=== PATIENT | female | born 1990 | race Caucasian/White ===

== ENCOUNTER 2022-04-06 16:58 | Emergency (ER) | payer OTHER ==
[~2022-04-06] VITALS: Ht 167.6 cm; Wt 70.0 kg
[2022-04-06 17:09] VITALS: BP 142/84
[2022-04-06] MEDS ORDERED: OLAN5TAB52 PO (17:18)
[2022-04-06] MEDS ORDERED: OLANZapine 5 MG TABLET PO ONE (17:45)
[2022-04-06] MEDS: LORazepam 1 MG TABLET PO ONE ×2 (18:17→18:24)
== END 2022-04-07 02:07 | disposition left against medical advice (07) ==
LOC: EMS 17:00
DX: F20.9 Schizophrenia, unspecified (principal); F32.9 Major depressive disorder, single episode, unspecified; F12.90 Cannabis use, unspecified, uncomplicated
CPT/HCPCS: 99283

== ENCOUNTER 2022-04-17 16:36 | Emergency (ER) | payer OTHER ==
[~2022-04-17] VITALS: Ht 165.1 cm; Wt 65.9 kg
[~2022-04-17 16:36] MED LIST: OLAN5TAB52 PO
[2022-04-17 17:28] VITALS: BP 145/86
[2022-04-20] MEDS ORDERED: FLUO-176 PO (17:55)
== END 2022-04-17 17:40 | disposition left against medical advice (07) ==
LOC: EMS 16:36
DX: N93.9 Abnormal uterine and vaginal bleeding, unspecified (principal); F20.9 Schizophrenia, unspecified; F32.9 Major depressive disorder, single episode, unspecified; F41.9 Anxiety disorder, unspecified; F12.90 Cannabis use, unspecified, uncomplicated
CPT/HCPCS: 99281

== ENCOUNTER 2022-04-17 19:59 | Inpatient (IN) | payer MEDICAID, OTHER ==
[~2022-04-17] VITALS: Ht 165.1 cm; Wt 75.4 kg
[2022-04-17 20:48] LABS: BASOPHILS % (AUTO) 0.4 % (0.0-2.0); EOSINOPHILS % (AUTO) 0.3 % (1.0-6.0); HEMATOCRIT 37.1 % (36-46); HEMOGLOBIN 11.8 g/dL (12.0-16.0); LYMPHOCYTES # (AUTO) 2.3 K/uL (1.0-4.8); LYMPHOCYTES % (AUTO) 18.4 % (22.0-44.0); MEAN CORPUSCULAR HEMOGLOBIN 26.2 pg (26.0-34.0); MEAN CORPUSCULAR HGB CONC 31.8 G/dL (31.0-37.0); MEAN CORPUSCULAR VOLUME 82 fL (80-100); MONOCYTES # (AUTO) 1.4 K/uL (0.1-1.0); MONOCYTES % (AUTO) 10.9 % (2.0-9.0); NEUTROPHILS # (AUTO) 8.9 K/uL (1.8-7.7); PLATELET COUNT (AUTO) 341 K/uL (150-450); RED BLOOD CELL COUNT(AUTO) 4.51 MIL/uL (4.00-5.20); RED CELL DISTRIBUTION WIDTH 15.9 % (11.5-14.5)
[2022-04-17 21:06] LABS: ANION GAP 14 mmol/L (8-16); CALCIUM, TOTAL 10.2 mg/dL (8.8-10.5); CARBON DIOXIDE 25 mmol/L (22-29); CHLORIDE 101 mmol/L (98-107); CREATININE 1.04 mg/dL (0.60-1.30); GLOMERULAR FILTR. RATE CALC > 60 mL/min (>60); GLUCOSE,RANDOM 99 mg/dL (70-110); POTASSIUM 4.1 mmol/L (3.5-5.1); SODIUM SERUM 140 mmol/L (136-145); UREA NITROGEN, BLOOD 9 mg/dL (7-18)
[2022-04-17 21:25] LABS: ALANINE AMINOTRANSFERASE 22 U/L (12-78); ALBUMIN 4.5 g/dL (3.4-5.0); ALKALINE PHOSPHATASE 64 U/L (46-116); ASPARTATE AMINOTRANSFERASE 12 U/L (15-37); BILIRUBIN,TOTAL 0.8 mg/dL (0.1-1.0); HCG,QUANTITATIVE < 1 mIU/mL (0-6); THYROID STIMULATING HORMONE 4.25 uIU/mL (0.36-3.74); TOTAL PROTEIN, SERUM 8.1 g/dL (6.4-8.2)
[2022-04-17 21:47] LABS: COVID AG,FIA SOURCE NASOPHARYNGEAL
[2022-04-17] MEDS ORDERED: LORazepam 2 MG TABLET PO ONE (22:00)
[2022-04-17] MEDS ORDERED: HALOPERIDOL 5 MG TABLET PO ONE (22:00)
[2022-04-17] MEDS ORDERED: DiphenhydrAMINE HCL 50 MG CAPSULE PO ONE (22:00)
[2022-04-17] MEDS: OLANZapine 5 MG TABLET PO ONE ×2 (22:14→22:20)
[2022-04-17] MEDS ORDERED: LORazepam 2 MG/ML VIAL IM ONE (22:45)
[2022-04-17] MEDS ORDERED: DiphenhydrAMINE HCL 50 MG/ML VIAL IM ONE (22:45)
[2022-04-17] MEDS ORDERED: HALOPERIDOL LACTATE 5 MG/ML VIAL IM ONE (22:45)
[2022-04-17] MEDS ORDERED: ZOLPIDEM TARTRATE 10 MG TABLET PO PRN (23:30)
[2022-04-17] MEDS ORDERED: OLANZapine 5 MG RAPDIS TABLET PO PRN (23:30)
[2022-04-18] MEDS: LORazepam 2 MG TABLET PO PRN (20:11)
[2022-04-18 20:15] VITALS: BP 120/75
[2022-04-19] MEDS ORDERED: OLAN5TAB77 PO (10:49)
[2022-04-19 16:37] VITALS: BP 127/82
[2022-04-19] MEDS ORDERED: ALBUTEROL SULFATE HFA 90 MCG/PUFF 8 GM INHALER IH PRN (19:30)
[2022-04-19] MEDS ORDERED: MAGNESIUM HYDROXIDE SUSPENSION 30 ML UDCUP PO PRN (19:30)
[2022-04-19] MEDS ORDERED: IBUPROFEN 400 MG TABLET PO PRN (19:30)
[2022-04-19] MEDS ORDERED: MAG HYDROX/AL HYDROX/SIMETH ES 30 ML SUSPENSION UDCUP PO PRN (19:30)
[2022-04-19] MEDS ORDERED: NICOTINE 14 MG/24 HOUR PATCH TD PRN (19:30)
[2022-04-19] MEDS ORDERED: DOCUSATE SODIUM 100 MG CAPSULE PO PRN (19:30)
[2022-04-19] MEDS ORDERED: CloNIDine HCL 0.1 MG TABLET PO PRN (19:30)
[2022-04-19] MEDS ORDERED: ONDANSETRON HCL 4 MG TABLET PO PRN (19:30)
[2022-04-19] MEDS ORDERED: GuaiFENesin/D-METHORPHAN [SUGAR-FREE] 200-20MG/10 ML SYRUP UDCUP PO PRN (19:30)
[2022-04-19] MEDS ORDERED: ACETAMINOPHEN 325 MG TABLET PO PRN (19:30)
[2022-04-19] MEDS ORDERED: LOPERAMIDE HCL 2 MG CAPSULE PO PRN (19:30)
[2022-04-19] MEDS ORDERED: PETROLATUM,WHITE 28 GM JELLY TP PRN (19:30)
[2022-04-19] MEDS: OLANZapine 5 MG TABLET PO SCH (21:00)
[2022-04-20] MEDS: OLANZapine 5 MG TABLET PO SCH (09:00)
[2022-04-20 16:04] VITALS: BP 106/56
[2022-04-20] MEDS ORDERED: FLUO-341 PO (17:55)
[2022-04-20] MEDS: OLANZapine 5 MG RAPDIS TABLET PO SCH (20:03)
[2022-04-21] MEDS: OLANZapine 5 MG RAPDIS TABLET PO SCH ×2 (08:15→20:38)
[2022-04-21 08:22] VITALS: BP 125/71
[2022-04-21 16:14] VITALS: BP 121/76
[2022-04-22] MEDS: OLANZapine 5 MG RAPDIS TABLET PO SCH ×2 (08:40→20:53)
[2022-04-22 16:21] VITALS: BP 125/67
[2022-04-22] MEDS: LORazepam 2 MG TABLET PO PRN (16:33)
[2022-04-23] MEDS: OLANZapine 5 MG RAPDIS TABLET PO SCH ×2 (08:54→20:53)
[2022-04-23 09:52] VITALS: BP 142/79
[2022-04-23 10:05] LABS: COVID AG,FIA SOURCE NASAL SWAB
[2022-04-23 17:30] VITALS: BP 123/71
[2022-04-24 08:24] VITALS: BP 149/54
[2022-04-24] MEDS: OLANZapine 5 MG RAPDIS TABLET PO SCH ×2 (08:31→21:09)
[2022-04-24 17:26] VITALS: BP 145/87
[2022-04-25] MEDS: OLANZapine 5 MG RAPDIS TABLET PO SCH ×2 (11:42→20:11)
[2022-04-26] MEDS: OLANZapine 5 MG RAPDIS TABLET PO SCH ×2 (08:18→20:51)
[2022-04-27] MEDS: OLANZapine 5 MG RAPDIS TABLET PO SCH ×2 (10:53→20:05)
[2022-04-28] MEDS: OLANZapine 5 MG RAPDIS TABLET PO SCH (08:51)
[2022-04-28] MEDS ORDERED: OLAN5TAB94 PO (12:30)
== END 2022-04-28 18:15 | disposition home or self-care (01) | DRG 750 ==
LOC: EMS 20:03 → 3EC 04-18 19:33
PROVIDERS: ADMIT Psychiatry & Neurology Psychiatry; ATTEND Psychiatry & Neurology Psychiatry
DX: F20.0 Paranoid schizophrenia (principal); D64.9 Anemia, unspecified; G47.00 Insomnia, unspecified; N93.9 Abnormal uterine and vaginal bleeding, unspecified; D72.829 Elevated white blood cell count, unspecified; Z20.822 Contact with and (suspected) exposure to COVID-19; E66.01 Morbid (severe) obesity due to excess calories; Z79.899 Other long term (current) drug therapy; Z68.27 Body mass index [BMI] 27.0-27.9, adult; Z78.1 Physical restraint status
CPT/HCPCS: 80053; 84443; 84702; 85025; 99291; G0480; J1200; J1630; J2060

== ENCOUNTER 2024-05-17 15:47 | Inpatient (IN) | payer SELFPAY ==
[~2024-05-17 15:47] MED LIST changes: -OLAN5TAB52 PO; +OLAN5TAB94 PO
[2024-05-17] MEDS ORDERED: LORazepam 2 MG TABLET PO PRN (16:00)
[2024-05-17] MEDS ORDERED: HALOPERIDOL 5 MG TABLET PO PRN (16:00)
[2024-05-17 17:41] LABS: GLUCOMETER DEV NAME(LOC) POC.BV; POC SARS-COV2 AG, FIA NEGATIVE (NEGATIVE)
[2024-05-17 18:11] VITALS: BP 130/81; PULSE 91; RESP 15; TEMP 98.4; O2SAT 99
[2024-05-17 22:27] VITALS: RESP 16
[2024-05-18 08:09] VITALS: RESP 16
[2024-05-18] MEDS: OLANZapine 5 MG TABLET PO SCH (10:00)
[2024-05-18] MEDS ORDERED: MAGNESIUM HYDROXIDE SUSPENSION 30 ML UDCUP PO PRN (12:45)
[2024-05-18] MEDS ORDERED: ACETAMINOPHEN 325 MG TABLET PO PRN (12:45)
[2024-05-18] MEDS ORDERED: LOPERAMIDE HCL 2 MG CAPSULE PO PRN (12:45)
[2024-05-18] MEDS ORDERED: ALBUTEROL SULFATE HFA 90 MCG/PUFF 8 GM INHALER IH PRN (12:45)
[2024-05-18] MEDS ORDERED: NICOTINE 14 MG/24 HOUR PATCH TD PRN (12:45)
[2024-05-18] MEDS ORDERED: GuaiFENesin/D-METHORPHAN [SUGAR-FREE] 200-20MG/10 ML SYRUP UDCUP PO PRN (12:45)
[2024-05-18] MEDS ORDERED: ONDANSETRON 4 MG TABLET PO PRN (12:45)
[2024-05-18] MEDS ORDERED: PETROLATUM,WHITE 28 GM JELLY TP PRN (12:45)
[2024-05-18] MEDS ORDERED: IBUPROFEN 400 MG TABLET PO PRN (12:45)
[2024-05-18] MEDS ORDERED: CloNIDine HCL 0.1 MG TABLET PO PRN (12:45)
[2024-05-18] MEDS ORDERED: MAG HYDROX/ALUMINUM HYD/SIMETH ES 30 ML SUSPENSION UDCUP PO PRN (12:45)
[2024-05-18] MEDS ORDERED: DOCUSATE SODIUM 100 MG CAPSULE PO PRN (12:45)
[2024-05-18 20:14] VITALS: BP 133/76; PULSE 97; RESP 18; TEMP 94.2; O2SAT 97
[2024-05-19 08:15] VITALS: RESP 18
[2024-05-19 20:17] VITALS: BP 136/78; PULSE 92; RESP 18; TEMP 97.5; O2SAT 98
[2024-05-20 08:20] VITALS: RESP 18
[2024-05-20] MEDS: INFLUENZA VIRUS VACCINE TVS (6MO+) 2024-25/PF 45 MCG/0.5 ML SYRINGE IM. ONE (08:39)
[2024-05-20] MEDS: PNEUMOCOCCAL VACCINE POLYVALENT 0.5 ML SYRINGE [PPSV23] IM. ONE (08:39)
[2024-05-20 20:17] VITALS: RESP 18
[2024-05-21 08:28] VITALS: RESP 18
[2024-05-21] MEDS: NICOTINE POLACRILEX 2 MG LOZENGE PO PRN (12:08)
[2024-05-21 20:23] VITALS: BP 123/68; PULSE 98; RESP 17; TEMP 97.8
[2024-05-21] MEDS: ZOLPIDEM TARTRATE 10 MG TABLET PO PRN (20:37)
[2024-05-22 08:18] VITALS: RESP 18
[2024-05-22] MEDS ORDERED: LORazepam 2 MG/ML VIAL ONE (19:19)
[2024-05-22] MEDS ORDERED: HALOPERIDOL LACTATE 5 MG/ML VIAL ONE (19:19)
[2024-05-22] MEDS ORDERED: DiphenhydrAMINE HCL 50 MG/ML VIAL ONE (19:19)
[2024-05-22] MEDS: DiphenhydrAMINE HCL 50 MG/ML VIAL IM ONE (20:19)
[2024-05-22] MEDS: LORazepam 2 MG/ML VIAL IM ONE (20:20)
[2024-05-22] MEDS: HALOPERIDOL LACTATE 5 MG/ML VIAL IM ONE (20:20)
[2024-05-23 08:17] VITALS: RESP 18
[2024-05-23 09:45] LABS: BASOPHILS % (AUTO) 0.9 % (0.0-2.0); HEMATOCRIT 35.3 % (36-46); HEMOGLOBIN 11.4 g/dL (12.0-16.0); LYMPHOCYTES # (AUTO) 2.2 K/uL (1.0-4.8); MEAN CORPUSCULAR HEMOGLOBIN 26.1 pg (26.0-34.0); MEAN CORPUSCULAR HGB CONC 32.2 G/dL (31.0-37.0); MEAN CORPUSCULAR VOLUME 81 fL (80-100); MONOCYTES # (AUTO) 0.8 K/uL (0.1-1.0); MONOCYTES % (AUTO) 8.7 % (2.0-9.0); NEUTROPHILS % (AUTO) 64.4 % (40.0-70.0); PLATELET COUNT (AUTO) 399 K/uL (150-450); RED BLOOD CELL COUNT(AUTO) 4.35 MIL/uL (4.00-5.20); RED CELL DISTRIBUTION WIDTH 18.4 % (11.5-14.5); WHITE BLOOD COUNT (AUTO) 9.2 K/uL (4.5-11.0)
== END 2024-05-23 13:55 | disposition home or self-care (01) | DRG 885 ==
LOC: B2S 15:49 → B3A 17:28
PROVIDERS: ADMIT Psychiatry & Neurology Child & Adolescent Psychiatry; ATTEND Psychiatry & Neurology Child & Adolescent Psychiatry
PROC: GZHZZZZ Group Psychotherapy (ICD-10-PCS; principal; 2024-05-18)
PROC: GZ51ZZZ Individual Psychotherapy, Behavioral (ICD-10-PCS; 2024-05-18)
PROC: GZ56ZZZ Individual Psychotherapy, Supportive (ICD-10-PCS; 2024-05-18)
PROC: GZ58ZZZ Individual Psychotherapy, Cognitive-Behavioral (ICD-10-PCS; 2024-05-18)
DX: F29 Unspecified psychosis not due to a substance or known physiological condition (principal); I10 Essential (primary) hypertension; Z20.822 Contact with and (suspected) exposure to COVID-19; F20.0 Paranoid schizophrenia; K59.00 Constipation, unspecified; F19.10 Other psychoactive substance abuse, uncomplicated; F41.9 Anxiety disorder, unspecified; G47.00 Insomnia, unspecified
CPT/HCPCS: 85025; J1200; J1630; J2060